=== PATIENT | female | born 1975 | race Hispanic/Latino ===

== ENCOUNTER 2017-04-29 02:10 | Emergency (ER) | payer SELFPAY ==
[~2017-04-29] VITALS: Ht 152.4 cm; Wt 62.3 kg
[2017-04-29 03:10] LABS: IMMATURE GRANULOCYTES 0.4 % (0.0-1.0); MEAN CELL VOLUME 90.6 fL CALC (80.0-100.0); MEAN CORPUSCULAR HGB 31.5 pG CALC (26.0-32.0); MEAN CORPUSCULAR HGB CONC 34.7 g/L CALC (32.0-36.0); NEUT# 8.88 thou/uL (2.00-7.15); RED BLOOD COUNT 4.45 mill/uL (4.20-5.60); RED CELL DISTRI WIDTH 12.7 % (11.5-15.5)
[2017-04-29 03:11] LABS: URINE BILIRUBIN - DIPSTICK NEGATIVE (NEGATIVE); URINE BLOOD DIPSTICK TRACE-INTACT (NEGATIVE); URINE COLOR YELLOW; URINE GLUCOSE - DIPSTICK NEGATIVE (NEGATIVE); URINE KETONE NEGATIVE (NEGATIVE); URINE LEUK ESTERASE NEGATIVE (NEGATIVE); URINE NITRITE - DIPSTICK NEGATIVE (Negative); URINE PH 6.5 (4.5-8.0); URINE PROTEIN - DIPSTICK NEGATIVE (NEG-TRACE); URINE UROBILINOGEN - DIPSTICK 0.2 E.U./dL (0.2)
[2017-04-29 03:11] LABS: HEMATOCRIT 40.3 % (37.0-47.0)
[2017-04-29 03:13] LABS: URINE CLARITY SL CLOUDY
[2017-04-29 03:16] LABS: BARBITURATES NEGATIVE (NEGATIVE); COCAINE NEGATIVE (NEGATIVE); METHADONE NEGATIVE (NEGATIVE); OXCYCODONE NEGATIVE (NEGATIVE); TETRAHYDROCANNABIONOL NEGATIVE (NEGATIVE); TRICYLIC ANTIDEPRESSANTS NEGATIVE (NEGATIVE)
[2017-04-29 03:20] LABS: ANION GAP 19 (6-22 (CALC)); BUN 14 mg/dL (7-17); BUN/CREATININE RATIO 25 (12-20 (CALC)); CARBON DIOXIDE 18 mmol/l (22-30); CHLORIDE 109 mmol/l (95-108); CREATININE 0.6 mg/dL (0.5-1.0); GFR > 60 ML/MIN (>=60 (CALC)); GFR FOR AFR.AMER. > 60 ML/MIN (>=60 (CALC)); POTASSIUM 3.2 mmol/l (3.5-5.1); SGOT/AST 28 u/l (14-36); SGPT/ALT 38 u/l (9-52); SODIUM 143 mmol/l (137-146); TOTAL PROTEIN 7.9 g/dL (6.3-8.2)
[2017-04-29 03:31] LABS: ALBUMIN 4.5 g/dL (3.2-5.0); ALKALINE PHOSPHATASE 69 u/l (38-126)
[2017-04-29 03:32] LABS: MYOGLOBIN 32 ng/mL (0 - 62)
[2017-04-29 03:52] LABS: INFLUENZA A NONE DETECTED (NONE DETECT); INFLUENZA B NONE DETECTED (NONE DETECT)
[2017-04-29] MEDS ORDERED: AMOXICILLIN500 MG PO (03:54)
[2017-04-29 04:17] VITALS: BP 135/83
== END 2017-04-29 04:18 | disposition home or self-care (01) | DRG 313 ==
LOC: ED 02:10
PROVIDERS: Emergency Medicine
DX: R07.9 Chest pain, unspecified (principal); F41.9 Anxiety disorder, unspecified; J02.0 Streptococcal pharyngitis; R50.9 Fever, unspecified; R06.02 Shortness of breath; M79.1 Myalgia; R00.2 Palpitations
CPT/HCPCS: J2060

== ENCOUNTER 2019-08-14 17:23 | Emergency (ER) | payer SELFPAY ==
[~2019-08-14] VITALS: Ht 152.4 cm; Wt 84.1 kg
[~2019-08-14 17:23] MED LIST: AMOXICILLIN500 MG PO
[2019-08-14] MEDS ORDERED: LOSARTAN POTASS50 MG PO (17:55)
[2019-08-14 18:14] LABS: HEMATOCRIT 40.7 % (37.0-47.0); HEMOGLOBIN 13.4 g/dl (12.0-16.0); IMMATURE GRANULOCYTES 0.6 % (0.0-5.0); MEAN CELL VOLUME 92.1 fL CALC (80.0-100.0); MEAN CORPUSCULAR HGB 30.3 pG CALC (26.0-32.0); MEAN CORPUSCULAR HGB CONC 32.9 g/dL CAL (32.0-36.0); NEUT# 7.04 thou/uL (2.00-7.15); RED BLOOD COUNT 4.42 mill/uL (4.20-5.60); RED CELL DISTRI WIDTH 12.7 % (11.5-15.5)
[2019-08-14 18:24] LABS: BUN 9 mg/dL (7-17); BUN/CREATININE RATIO 18 (12-20 (CALC)); CHLORIDE 102 mmol/l (95-108); CREATININE 0.5 mg/dL (0.5-1.0); GFR > 60 ML/MIN (>=60 (CALC)); GFR FOR AFR.AMER. > 60 ML/MIN (>=60 (CALC)); SODIUM 137 mmol/l (137-146)
[2019-08-14 18:28] LABS: ANION GAP 12 (6-22 (CALC)); CARBON DIOXIDE 27 mmol/l (22-30); POTASSIUM 3.9 mmol/l (3.5-5.1)
[2019-08-14] MEDS ORDERED: CIPROFLOXACN500 MG PO (18:57)
[2019-08-14] MEDS ORDERED: FLOXIN OTIC0.3 % AD (18:59)
[2019-08-14 19:40] VITALS: BP 166/79
== END 2019-08-14 19:40 | disposition home or self-care (01) | DRG 156 ==
LOC: ED 17:23
PROVIDERS: Family Medicine
DX: H60.91 Unspecified otitis externa, right ear (principal)

== ENCOUNTER 2023-09-02 09:28 | Emergency (ER) | payer SELFPAY ==
[~2023-09-02] VITALS: Ht 152.4 cm; Wt 67.1 kg
[2023-09-02] VITALS (21 sets, daily range): BP systolic 131–213; BP diastolic 88–117
[~2023-09-02 09:28] MED LIST changes: +CIPROFLOXACN500 MG PO; +FLOXIN OTIC0.3 % AD; +LOSARTAN POTASS50 MG PO
[2023-09-02 10:15] LABS: URINE BILIRUBIN - DIPSTICK Negative (NEGATIVE); URINE BLOOD DIPSTICK Trace-intact (NEGATIVE); URINE GLUCOSE - DIPSTICK Negative (NEGATIVE); URINE KETONE Negative (NEGATIVE); URINE LEUK ESTERASE Trace (NEGATIVE); URINE NITRITE - DIPSTICK Negative (Negative); URINE PROTEIN - DIPSTICK Negative (NEG-TRACE); URINE UROBILINOGEN - DIPSTICK 0.2 E.U./dL (0.2)
[2023-09-02 10:17] LABS: BASO% 0.7 % (0-3); EOS% 2.1 % (0-8); HEMATOCRIT 42.9 % (37.0-47.0); HEMOGLOBIN 14.4 g/dl (12.0-16.0); IMMATURE GRANULOCYTES 0.4 % (0.0-5.0); LYMPH% 33.2 % (15-41); MEAN CELL VOLUME 90.7 fL CALC (80.0-100.0); MEAN CORPUSCULAR HGB 30.4 pG CALC (26.0-32.0); MEAN CORPUSCULAR HGB CONC 33.6 g/dL CAL (32.0-36.0); MONO% 7.7 % (2-13); NEUT# 4.23 thou/uL (2.00-7.15); NEUT% 55.9 % (42-76); RED BLOOD COUNT 4.73 mill/uL (4.20-5.60); RED CELL DISTRI WIDTH 12.7 % (11.5-15.5)
[2023-09-02 10:17] LABS: URINE COLOR Yellow
[2023-09-02 10:29] LABS: ALBUMIN 4.9 g/dL (3.2-5.0); BILIRUBIN, TOTAL 1.5 mg/dL (0.02-1.3); CREATININE 0.6 mg/dL (0.5-1.0); POTASSIUM 3.6 mmol/l (3.5-5.1); TOTAL PROTEIN 8.7 g/dL (6.3-8.2)
[2023-09-02] MEDS ORDERED: ORPHENADRINE CITRATE 30 MG/ML AMP IV ONE (10:55)
[2023-09-02] MEDS ORDERED: KETOROLAC TROMETHAMINE 30 MG/ML SDV IV ONE (10:55)
[2023-09-02] MEDS ORDERED: METHOCARBAMOL 500 MG/TAB PO ONE (12:15)
[2023-09-02] MEDS ORDERED: LABETALOL HCL 100 MG/20 ML VIAL IV ONE ×2 (13:10→13:20)
[2023-09-02] MEDS ORDERED: NAPROXEN500 MG PO (14:27)
[2023-09-02] MEDS ORDERED: LOSARTAN POTASS50 MG PO (14:27)
== END 2023-09-02 15:05 | disposition home or self-care (01) | DRG 313 ==
LOC: ED 09:28
PROVIDERS: Family Medicine
DX: R07.9 Chest pain, unspecified (principal); I10 Essential (primary) hypertension
CPT/HCPCS: Q9967